=== PATIENT | female | born 1985 | race Caucasian/White ===

== ENCOUNTER 2018-04-29 11:59 | Emergency (ER) | payer MEDICAID ==
--- NOTE | 2018-04-29 12:57 | ED PDOC ---
Arrival/HPI - General Time Seen by Provider: 04/29/18 12:31 Historian: Patient - History of Present Illness Narrative History of Present Illness (Text): 04/29/18 13:14 A 33 year old female, with no significant past medical history, presents to the emergency department complaining of abdominal pain for 10 days. Patient reports she missed her last menstrual period. She had takne 2 tests, both times were negative. States pain is on and off, occurs daily lasting for approximately 1 hour. Denies any pain as of now while here in the Emergency room. Patient denies nausea, vomiting, or any other complaints at this time. No PMD Past Medical History - Provider Review Nursing Documentation Reviewed: Yes Family/Social History - Physician Review Nursing Documentation Reviewed: Yes Family/Social History: No Known Family HX Allergies/Home Meds Allergies/Adverse Reactions: Allergies No Known Allergies Allergy (Verified 04/29/18 12:59) Review of Systems - Physician Review All systems were reviewed & negative as marked: Yes - Review of Systems Constitutional: absent: Fevers Gastrointestinal: Abdominal Pain (not at this time however). absent: Nausea, Vomiting Physical Exam - Physical Exam Narrative Physical Exam (Text): Gen: VS reviewed, alert, well developed, well nourished, nontoxic, mild distress. ENT: normal pharynx Eye: EOMI, PERRL Neck: no JVD, supple, no adenopathy CV: regular rate, regular rhythm, no rubs, no murmur, no gallops, S1, S2, pulses equal and strong Pulm: no distress, clear to auscultation, no wheeze, no rhonchi, breath sounds equal, no rales Abd: soft, nontender, no guarding, no rebound, no rigidity, normal bowel sounds Ext: no edema Skin: good color, no rash, no cyanosis Psych: responds appropriately to questions, normal affect Neuro: oriented x 3, CN2-12 intact grossly, motor intact, sensation intact Vital Signs Reviewed: Yes Vital Signs Temp Pulse Resp BP Pulse Ox 04/29/18 15:10 98 F 72 18 124/64 100 04/29/18 12:00 98 F 77 18 139/60 100 Temperature: Afebrile Blood Pressure: Normal Pulse: Regular Respiratory Rate: Normal Appearance: Positive for: Well-Appearing, Non-Toxic, Comfortable Pain Distress: None Mental Status: Positive for: Alert and Oriented X 3 Medical Decision Making ED Course and Treatment: 04/29/18 13:16 Impression: 33 year old female with abdominal pain. Plan: -- Urinalysis -- POC Urine Test -- Reassess and disposition Progress Notes: 04/30/18 19:12 patient was seen for transient pelvic pain with a missed menstrual cycle. there was no associated fever, no vomit, no diarhea, no constipation, no irritative voiding symptoms, no abnormal vaginal discharge. patient had two negative home preg tests and with the thired negative in the ED it is extremely unlikely that that the patient is at the time of ED eval. patient did not have any pain at time of ED eval and it was agreed with the patient to forego extensive testing. 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 - Lab Interpretations Microbiology Results: Microbiology Results 04/29/18 13:00 Urine,Clean Catch Urine Culture - Final MULTIPLE SPECIES. SUGGEST REPEAT SPECIMEN. Lab Results: Lab Results 04/29/18 13:00: Urine Color Yellow, Urine Appearance Sl cloudy, Urine pH 6.0, Ur Specific [place] >= 1.030, Urine Protein Trace H, Urine Glucose (UA) Negative , Urine Ketones Trace H, Urine Blood Negative, Urine Nitrate Negative, Urine Bilirubin Negative, Urine Urobilinogen 0.2, Ur Leukocyte Esterase Small H, Urine RBC 0 - 2, Urine WBC 5 - 10, Ur Epithelial Cells Many, Urine Bacteria Many , Urine Other Uyeast - Scribe Statement The provider has reviewed the documentation as recorded by the Lux Thompson Provider Scribe Provider Scribe Attestation: All medical record entries made by the Scribe were at my direction and personally dictated by me. I have reviewed the chart and agree that the record accurately reflects my personal performance of the history, physical exam, medical decision making, and the department course for this patient. I have also personally directed, reviewed, and agree with the discharge instructions and disposition. Disposition/Present on Arrival - Present on Arrival Any Indicators Present on Arrival: No - Disposition Have Diagnosis and Disposition been Completed?: Yes Diagnosis: Pelvic pain Disposition: HOME/ ROUTINE Disposition Time: 19:14 Condition: STABLE Discharge Instructions (ExitCare): Acute Pelvic Pain (DC) Print Language: KYRGYZ Additional Instructions: Return for any new or worsening symptoms. 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 OSMEL DAWSON, thank you for letting us take care of you today. Your provider was Dr. Rigo Steele and you were treated for pelvic pain. The emergency medical care you received today was directed at your acute symptoms. If you were prescribed any medication, please fill it and take as directed. It may take several days for your symptoms to resolve. Return to the Emergency Department if your symptoms worsen, do not improve, or if you have any other problems. Please contact your doctor or call one of the physicians/clinics you have been referred to that are listed on the Patient Visit Information form that is included in your discharge packet. Bring any paperwork you were given at discharge with you along with any medications you are taking to your follow up visit. Our treatment cannot replace ongoing medical care by a primary care provider outside of the emergency department. Thank you for allowing the [facility] team to be part of your care today. If you had an X-Ray or CT scan: A Radiologist will review the ED reading if any change in treatment is needed we will contact you. If you had a blood, urine, or wound culture: It will take several days for the results, if any change in treatment is needed we will contact you. If you had an STI test: It will take 48 hours for the results. Please call after 1 week if you have not heard back. Prescriptions: Ibuprofen [Ibu] 400 mg PO TID #30 tablet Referrals: [facility] [Outside] - Follow up with primary Forms: [employer] (Malay), WORK NOTE
[2018-04-29 12:59] VITALS: BMI 29.7
[2018-04-29 13:00] VITALS: RESP 18; TEMP 98; O2SAT 100
[2018-04-29 13:58] LABS: URINE BILIRUBIN NEGATIVE (NEGATIVE); URINE BLOOD NEGATIVE (NEGATIVE); URINE GLUCOSE (UA) NEGATIVE (NEGATIVE); URINE LEUKOCYTE ESTERASE SMALL Leu/uL (NEGATIVE); URINE PROTEIN TRACE mg/dL (<30 mg/dL); URINE UROBILINOGEN 0.2 E.U./dL (<1 E.U./dL)
[2018-04-29 14:04] LABS: URINE APPEARANCE SL CLOUDY (CLEAR); URINE COLOR YELLOW (YELLOW)
[2018-04-29 14:18] LABS: URINE RBC 0 - 2 /hpf (0-2)
[2018-04-29 14:19] LABS: URINE BACTERIA MANY (NEG); URINE EPITHELIAL CELLS MANY /hpf (0-5)
[2018-04-29 15:33] VITALS: BP 124/64; PULSE 72
== END 2018-04-29 15:10 | disposition home or self-care (01) ==
LOC: ED 11:59
DX: R10.2 Pelvic and perineal pain (principal)